=== PATIENT | female | born 1975 | race Caucasian/White ===

== ENCOUNTER 2018-04-28 12:59 | Emergency (ER) | payer MEDICAID ==
[~2018-04-28] VITALS: Ht 167.6 cm; Wt 121.0 kg
[~2018-04-28 12:59] MED LIST: CLA10T PO; ESCI20TA29 PO; NORCO10T PO; OMEP40CA37 PO
[2018-04-28 13:07] VITALS: BP 159/110
[2018-04-28] MEDS ORDERED: ACET1TAB12 PO (13:38)
[2018-04-28] MEDS ORDERED: PENI-88 PO (13:38)
== END 2018-04-28 13:50 | disposition home or self-care (01) ==
LOC: ER 13:00
DX: K04.7 Periapical abscess without sinus (principal); G89.29 Other chronic pain; F32.9 Major depressive disorder, single episode, unspecified; Z72.0 Tobacco use
CPT/HCPCS: 99283

== ENCOUNTER 2018-08-02 16:38 | Emergency (ER) | payer MEDICAID ==
[~2018-08-02] VITALS: Ht 167.6 cm; Wt 131.8 kg
[~2018-08-02 16:38] MED LIST changes: +ACET1TAB12 PO
[2018-08-02 17:17] VITALS: BP 148/91
[2018-08-02] MEDS ORDERED: ketorolac trometh inj. 60 MG/2 ML VIAL IM ONE (20:05)
[2018-08-02] MEDS ORDERED: ondansetron 4mg rapidly disintigrating tab PO ONE (20:05)
[2018-08-02] MEDS ORDERED: HYDROcodone/acetaminophen 5mg/325mg tablet PO ONE (20:05)
[2018-08-02] MEDS ORDERED: HYDR-3965 PO (20:10)
== END 2018-08-02 20:50 | disposition home or self-care (01) ==
LOC: ER 16:38
DX: S93.402A Sprain of unspecified ligament of left ankle, initial encounter (principal); G89.29 Other chronic pain; F32.9 Major depressive disorder, single episode, unspecified; W18.30XA Fall on same level, unspecified, initial encounter; Y93.89 Activity, other specified; Y92.59 Other trade areas as the place of occurrence of the external cause; Y99.8 Other external cause status
CPT/HCPCS: 29515; 73610; 96372; 99284; J1885

== ENCOUNTER 2018-09-09 14:55 | Outpatient (CLI) | payer MEDICAID ==
[2018-09-09 14:44] VITALS: BP 173/122
== END 2018-09-09 15:12 | disposition home or self-care (01) ==
LOC: ORTHO 14:55
PROVIDERS: ATTEND Nurse Practitioner Family
DX: S93.412D Sprain of calcaneofibular ligament of left ankle, subsequent encounter (principal); Z72.89 Other problems related to lifestyle; W01.0XXD Fall on same level from slipping, tripping and stumbling without subsequent striking against object, subsequent encounter
CPT/HCPCS: 73610; 99213

== ENCOUNTER 2020-06-26 20:43 | Emergency (ER) | payer MEDICAID ==
[~2020-06-26] VITALS: Ht 167.6 cm; Wt 119.8 kg
[~2020-06-26 20:43] MED LIST changes: +OMEP40CA13 PO; -OMEP40CA37 PO
[2020-06-26 20:45] VITALS: BP 165/94
--- NOTE | 2020-06-26 21:27 | NUR ---
Notified MD Dennison of pt's intent to leave before being seen by provider. Pt is currently denying any thoughts of self harm. She states she adamently wants to leave and has changed her mind about being seen. She states that since she came here voluntarily that she should be allowed to leave. This was relayed to the MD.
--- NOTE | 2020-06-26 21:32 | NUR ---
reported that if pt is currently denying self harm that she is free to leave if she will not wait to be seen by a provider. The pt is standing by the triage window requesting to leave.
== END 2020-06-26 21:36 | disposition left against medical advice (07) ==
LOC: ER 20:44
DX: S80.212A Abrasion, left knee, initial encounter (principal); Z53.21 Procedure and treatment not carried out due to patient leaving prior to being seen by health care provider; X58.XXXA Exposure to other specified factors, initial encounter; Y93.89 Activity, other specified; Y92.89 Other specified places as the place of occurrence of the external cause; Y99.8 Other external cause status

== ENCOUNTER 2021-09-19 22:07 | Emergency (ER) | payer BC, MEDICAID ==
[~2021-09-19] VITALS: Ht 167.6 cm; Wt 111.0 kg
[~2021-09-19 22:07] MED LIST changes: -OMEP40CA13 PO; +OMEP40CA21 PO
[2021-09-20] MEDS ORDERED: TETanus/Pertussis (Acell)/Diphther VAC/PF (Tdap-Adult) 0.5ml syringe IMVAC ONE (01:25)
[2021-09-20] MEDS ORDERED: LIDOcaine 1% W/epiNEPHrine 1:100,000 20ml vial IJ ONE (01:25)
[2021-09-20] MEDS ORDERED: LIDOcaine 1% W/epiNEPHrine 1:200,000 10ml vial IJ ONE (01:25)
[2021-09-20] MEDS ORDERED: naproxen 500mg tablet PO ONE (01:25)
[2021-09-20] MEDS ORDERED: DOXYCYCLINE 100MG CAPSULE PO STA (02:23)
[2021-09-20] MEDS ORDERED: DOXY-411 PO (02:56)
[2021-09-20 03:17] VITALS: BP 140/74
== END 2021-09-20 03:18 | disposition home or self-care (01) ==
LOC: ER 22:08
DX: S01.21XA Laceration without foreign body of nose, initial encounter (principal); G89.29 Other chronic pain; Z72.89 Other problems related to lifestyle; Z79.2 Long term (current) use of antibiotics; Z79.899 Other long term (current) drug therapy; W45.8XXA Other foreign body or object entering through skin, initial encounter; Y93.89 Activity, other specified; Y92.89 Other specified places as the place of occurrence of the external cause; Y99.8 Other external cause status
CPT/HCPCS: 12011; 90471; 90715; 99283